=== PATIENT | female | born 1965 | race Caucasian/White ===

== ENCOUNTER 2022-02-16 18:45 | Emergency (ER) | payer BC ==
[~2022-02-16] VITALS: Ht 157.5 cm; Wt 56.7 kg
[2022-02-16 18:50] VITALS: BP 159/106
--- NOTE | 2022-02-16 18:53 | NUR ---
PT AMBULATED TO BED 04.
[2022-02-16] MEDS ORDERED: LIDOCAINE MPF 1% 10 MG/ML VIAL INJ ONE (19:20)
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
[2022-02-16] MEDS ORDERED: HYDROcodone/APAP 7.5/325 MG 1 TAB PO ONE (21:15)
[2022-02-16] MEDS ORDERED: AMOX-999 PO (21:22)
[2022-02-16] MEDS ORDERED: ACET-6951 PO (21:22)
[2022-02-16] MEDS ORDERED: IBUP-2213 PO (21:22)
[2022-02-16] MEDS ORDERED: BACO TP (21:27)
[2022-02-16 22:20] VITALS: BP 159/106
--- NOTE | 2022-02-16 22:20 | NUR ---
Patient discharged with v/s stable. Written and verbal after care instructions given and explained. Patient alert, oriented and verbalized understanding of instructions. Ambulatory with steady gait. All questions addressed prior to discharge. ID band removed. Patient advised to follow up with PMD. Rx of AUGUMENTIN, IBUPROFEN, ACETAMINOPHEN-COD #3, AND BACITRACIN given. Patient educated on indication of medication including possible reaction and side effects. Opportunity to ask questions provided and answered.
== END 2022-02-16 22:19 | disposition home or self-care (01) ==
LOC: MED 18:45
DX: S61.212A Laceration without foreign body of right middle finger without damage to nail, initial encounter (principal); J45.909 Unspecified asthma, uncomplicated; Z88.1 Allergy status to other antibiotic agents; W54.0XXA Bitten by dog, initial encounter; Y93.89 Activity, other specified; Y92.89 Other specified places as the place of occurrence of the external cause; Y99.8 Other external cause status
CPT/HCPCS: 12001; 73140; 90471; 90715; 99283; J2001